=== PATIENT | female | born 1995 | race American Indian/Alaskan Native ===

== ENCOUNTER 2019-03-04 19:00 | Outpatient (CLI) | payer MEDICAID ==
[2019-03-04 21:12] VITALS: BP 130/81
== END 2019-03-04 21:15 | disposition home or self-care (01) ==
LOC: TRG 19:00
PROVIDERS: ATTEND Obstetrics & Gynecology
DX: O26.893 Other specified pregnancy related conditions, third trimester (principal); H53.8 Other visual disturbances; R22.33 Localized swelling, mass and lump, upper limb, bilateral; Z3A.38 38 weeks gestation of pregnancy
CPT/HCPCS: 59025